=== PATIENT | female | born 1975 | race Caucasian/White ===

== ENCOUNTER → 2016-11-29 | Outpatient (CLI) | payer BC ==
[~2016-11-29] MED LIST: *ANUSOI RE; ACET500C OR; COLA100C2 OR; IBUP600T OR; MOM PO; PRENTAB8 PO; PRIL40CA OR
[2016-11-29 10:14] LABS: ALBUMIN/GLOBULIN RATIO 1.29 (1.00-1.93); ALKALINE PHOSPHATASE 53 U/L (45-117); ALT/SGPT 16 U/L (12-78); ANION GAP 9 MEQ/L (8-16); AST/SGOT 13 U/L (15-37); BILIRUBIN,TOTAL 0.7 MG/DL (0.2-1.0); BLOOD UREA NITROGEN 12 MG/DL (7-18); CARBON DIOXIDE LEVEL 25 MEQ/L (21-32); CHLORIDE LEVEL 105 MEQ/L (98-107); CHOLESTEROL LEVEL 240 MG/DL (<200); CREATININE FOR GFR 0.73 MG/DL (0.55-1.02); GLOMERULAR FILTRATION RATE > 60.0 (>58); GLUCOSE, FASTING 87 MG/DL (70-105); POTASSIUM SERUM 4.6 MEQ/L (3.5-5.1); SODIUM LEVEL 139 MEQ/L (136-145); TOTAL PROTEIN 7.1 GM/DL (6.4-8.2); TRIGLYCERIDES LEVEL 74 MG/DL (<150)
== END ==
LOC: M WUC 08:16
PROVIDERS: ATTEND Physician Assistant Medical
DX: E78.5 Hyperlipidemia, unspecified (principal)

== ENCOUNTER → 2016-12-28 | Outpatient (REF) | payer BC | LOC: M LAB REF 13:50 | PROVIDERS: ATTEND Nurse Practitioner Family | DX: R07.9 Chest pain, unspecified (principal) ==

== ENCOUNTER 2017-07-19 09:32 | Day surgery (SDC) | payer BC ==
[~2017-07-19 09:32] MED LIST changes: -*ANUSOI RE; -ACET500C OR; -COLA100C2 OR; -IBUP600T OR; +LIDOCAINE 2% INJ 100 MG/5 ML SDV (FOR ANES.) As Ordered; -MOM PO; -PRENTAB8 PO; -PRIL40CA OR; +PROPOFOL 200 MG/20 ML VIAL As Ordered
== END 2017-07-19 12:11 | disposition home or self-care (01) ==
LOC: M OPP 09:32
DX: R13.10 Dysphagia, unspecified (principal); K22.8 Other specified diseases of esophagus; K29.70 Gastritis, unspecified, without bleeding; K21.9 Gastro-esophageal reflux disease without esophagitis; R12 Heartburn; Z79.899 Other long term (current) drug therapy
CPT/HCPCS: 43239

== ENCOUNTER → 2018-02-17 | Outpatient (CLI) | payer BC ==
[2018-02-17 19:50] LABS: HEMATOCRIT 38.6 % (36.0-47.0); HEMOGLOBIN 12.6 g/dl (12.0-15.5); MEAN CORPUSCULAR HEMOGLOBIN 28.1 pg (27.0-33.0); MEAN CORPUSCULAR HGB CONC 32.6 g/dl (32.0-36.5); PLATELET COUNT, AUTOMATED 211 10^3/uL (150-450); RED BLOOD COUNT 4.49 10^6/uL (4.00-5.40); RED CELL DISTRIBUTION WIDTH 12.7 % (11.5-14.5); WHITE BLOOD COUNT 5.1 10^3/uL (4.0-10.0)
[2018-02-17 20:02] LABS: ANION GAP 6 MEQ/L (8-16); BLOOD UREA NITROGEN 11 MG/DL (7-18); CALCIUM LEVEL 9.1 MG/DL (8.5-10.1); CARBON DIOXIDE LEVEL 27 MEQ/L (21-32); CHLORIDE LEVEL 106 MEQ/L (98-107); CREATININE FOR GFR 0.74 MG/DL (0.55-1.30); GLOMERULAR FILTRATION RATE > 60.0 (>58); GLUCOSE, FASTING 86 MG/DL (70-100); POTASSIUM SERUM 4.1 MEQ/L (3.5-5.1); SODIUM LEVEL 139 MEQ/L (136-145)
== END ==
LOC: M WUC 17:38
DX: R25.3 Fasciculation (principal)
CPT/HCPCS: 84443

== ENCOUNTER 2018-10-03 12:31 | Day surgery (SDC) | payer BC ==
[~2018-10-03] VITALS: Ht 165.1 cm; Wt 84.4 kg
[~2018-10-03 12:31] MED LIST changes: +*ANUSOI RE; +ACET500C OR; +COLA100C2 OR; +IBUP600T OR; -LIDOCAINE 2% INJ 100 MG/5 ML SDV (FOR ANES.) As Ordered; +MOM PO; +OMEP-221 PO; +PANT40TA3 PO; +PRENTAB8 PO; +PRIL40CA OR; -PROPOFOL 200 MG/20 ML VIAL As Ordered
[2018-10-03] MEDS ORDERED: NS 1,000 ML IV ONE (13:00)
[2018-10-03] MEDS ORDERED: PROPOFOL 200 MG/20 ML VIAL As Ordered ONE ×2 (13:12→13:45)
[2018-10-03] MEDS ORDERED: LIDOCAINE 2% INJ 100 MG/5 ML SDV (FOR ANES.) As Ordered ONE (13:12)
[2018-10-03] MEDS ORDERED: fentaNYL 100 MCG/2 ML INJECTION (J3010) As Ordered ONE (13:13)
--- NOTE | 2018-10-03 14:15 | ROOR ---
Patient Name: Elizabeth Lay Procedure Date: 10/03/2018 1:26 PM Date of : 1975 Age: 42 Room: [facility] Gender: Female Note Status: Finalized Procedure: Upper GI endoscopy Indications: Dysphagia, Heartburn Providers: Cb Arthur MD Referring MD: ANTHONY GRANGER JR, MD Requesting Provider: Medicines: Monitored Anesthesia Care Complications: No immediate complications. Procedure: Pre-Anesthesia Assessment: - Prior to the procedure, a History and Physical was performed, and patient medications and allergies were reviewed. The patient is competent. The risks and benefits of the procedure and the sedation options and risks were discussed with the patient. All questions were answered and informed consent was obtained. Patient identification and proposed procedure were verified by the physician, the nurse and the anesthesiologist in the procedure room. Mental Status Examination: alert and oriented. Airway Examination: normal oropharyngeal airway and neck mobility. Respiratory Examination: clear to auscultation. CV Examination: normal. Prophylactic Antibiotics: The patient does not require prophylactic antibiotics. Prior Anticoagulants: The patient has taken no previous anticoagulant or antiplatelet agents. ASA Grade Assessment: II - A patient with mild systemic disease. After reviewing the risks and benefits, the patient was deemed in satisfactory condition to undergo the procedure. The anesthesia plan was to use monitored anesthesia care (MAC). Immediately prior to administration of medications, the patient was re-assessed for adequacy to receive sedatives. The heart rate, respiratory rate, oxygen saturations, blood pressure, adequacy of pulmonary ventilation, and response to care were monitored throughout the procedure. The physical status of the patient was re-assessed after the procedure. The Endoscope was introduced through the mouth, and advanced to the second part of duodenum. The upper GI endoscopy was accomplished without difficulty. The patient tolerated the procedure well. Findings: The Z-line was irregular and was found 36 cm from the incisors. Mucosal changes including longitudinal furrows, white plaques and circumferential folds were found in the middle third of the esophagus and in the lower third of the esophagus. Biopsies were obtained from the proximal and distal esophagus with cold forceps for histology of suspected eosinophilic esophagitis. Verification of patient identification for the specimen was done by the physician and nurse using the patient's name, date and medical record number. Estimated blood loss was minimal. Scattered mild inflammation characterized by erythema and granularity was found in the gastric antrum. Biopsies were taken with a cold forceps for Helicobacter pylori testing. The duodenal bulb and second portion of the duodenum were normal. Impression: - Z-line irregular, 36 cm from the incisors. - Esophageal mucosal changes suspicious for eosinophilic esophagitis. Biopsied. - Gastritis. Biopsied. - Normal duodenal bulb and second portion of the duodenum. Recommendation: - Patient has a contact number available for emergencies. The signs and symptoms of potential delayed complications were discussed with the patient. Return to normal activities tomorrow. Written discharge instructions were provided to the patient. - High fiber diet. - Follow an antireflux regimen. - Continue present medications. - Await pathology results. - Telephone GI clinic for pathology results in 2 weeks. - Return to primary care physician. Cb Arthur MD Cb Arthur MD 10/03/2018 2:15:01 PM Electronically signed by Cb Arthur MD Number of Addenda: 0 Note Initiated On: 10/03/2018 1:26 PM Estimated Blood Loss: Estimated blood loss was minimal.
--- NOTE | 2018-10-03 14:18 | ROOR ---
Patient Name: Elizabeth Lay Procedure Date: 10/03/2018 1:27 PM Date of : 1975 Age: 42 Room: [facility] Gender: Female Note Status: Finalized Procedure: Colonoscopy Indications: Change in bowel habits, Constipation Providers: Cb Arthur MD Referring MD: ANTHONY GRANGER JR, MD Requesting Provider: Medicines: Monitored Anesthesia Care Complications: No immediate complications. Procedure: Pre-Anesthesia Assessment: - Prior to the procedure, a History and Physical was performed, and patient medications and allergies were reviewed. The patient is competent. The risks and benefits of the procedure and the sedation options and risks were discussed with the patient. All questions were answered and informed consent was obtained. Patient identification and proposed procedure were verified by the physician, the nurse and the anesthesiologist in the procedure room. Mental Status Examination: alert and oriented. Airway Examination: normal oropharyngeal airway and neck mobility. Respiratory Examination: clear to auscultation. CV Examination: normal. Prophylactic Antibiotics: The patient does not require prophylactic antibiotics. Prior Anticoagulants: The patient has taken no previous anticoagulant or antiplatelet agents. ASA Grade Assessment: II - A patient with mild systemic disease. After reviewing the risks and benefits, the patient was deemed in satisfactory condition to undergo the procedure. The anesthesia plan was to use monitored anesthesia care (MAC). Immediately prior to administration of medications, the patient was re-assessed for adequacy to receive sedatives. The heart rate, respiratory rate, oxygen saturations, blood pressure, adequacy of pulmonary ventilation, and response to care were monitored throughout the procedure. The physical status of the patient was re-assessed after the procedure. The Colonoscope was introduced through the anus and advanced to the terminal ileum, with identification of the appendiceal orifice and IC valve. The colonoscopy was performed without difficulty. The patient tolerated the procedure well. The quality of the bowel preparation was good. The terminal ileum, ileocecal valve, appendiceal orifice, and rectum were photographed. Scope insertion time was 2 minutes. Scope withdrawal time was 8 minutes. The total duration of the procedure was 10 minutes. Findings: The perianal and digital rectal examinations were normal. The terminal ileum appeared normal. Normal mucosa was found in the entire colon. Non-bleeding external and internal hemorrhoids were found during retroflexion. The hemorrhoids were small. Impression: - The examined portion of the ileum was normal. - Normal mucosa in the entire examined colon. - Non-bleeding external and internal hemorrhoids. - No specimens collected. Recommendation: - Patient has a contact number available for emergencies. The signs and symptoms of potential delayed complications were discussed with the patient. Return to normal activities tomorrow. Written discharge instructions were provided to the patient. - High fiber diet. - Continue present medications. - Repeat colonoscopy in 10 years for screening purposes. - Return to primary care physician. Cb Arthur MD Cb Arthur MD 10/03/2018 2:18:18 PM Electronically signed by Cb Arthur MD Number of Addenda: 0 Note Initiated On: 10/03/2018 1:27 PM Estimated Blood Loss: Estimated blood loss: none.
[2018-10-03 14:20] VITALS: BP 124/60
== END 2018-10-03 14:46 | disposition home or self-care (01) ==
LOC: M OPP 12:31
PROVIDERS: ATTEND Internal Medicine Gastroenterology
DX: K64.8 Other hemorrhoids (principal); R19.4 Change in bowel habit; K59.00 Constipation, unspecified; R13.10 Dysphagia, unspecified; K22.8 Other specified diseases of esophagus; K29.70 Gastritis, unspecified, without bleeding; R12 Heartburn; K21.9 Gastro-esophageal reflux disease without esophagitis
CPT/HCPCS: 43239; 45378; 88305; J3010

== ENCOUNTER → 2019-02-19 | Outpatient (REF) | payer BC | LOC: M LAB REF 12:11 | PROVIDERS: ATTEND Nurse Practitioner Women's Health | DX: B00.9 Herpesviral infection, unspecified (principal) ==

== ENCOUNTER 2019-05-02 16:56 | Emergency (ER) | payer BC ==
[~2019-05-02] VITALS: Ht 165.1 cm; Wt 86.4 kg
[2019-05-02 18:02] LABS: BASO % 0.4 % (0.0-1.0); EOS # 0.1 10^3/uL (0.0-0.5); HEMATOCRIT 39.9 % (36.0-47.0); HEMOGLOBIN 12.5 g/dl (12.0-15.5); LYMPH # 1.8 10^3/uL (1.5-5.0); LYMPH % 36.3 % (24.0-44.0); MEAN CORPUSCULAR HEMOGLOBIN 26.5 pg (27.0-33.0); MEAN CORPUSCULAR HGB CONC 31.3 g/dl (32.0-36.5); MEAN CORPUSCULAR VOLUME 84.5 fl (80.0-96.0); MONO # 0.4 10^3/uL (0.0-0.8); MONO % 7.5 % (0.0-5.0); NEUTROPHILS # 2.7 10^3/uL (1.5-8.5); NEUTROPHILS % 54.4 % (36.0-66.0); PLATELET COUNT, AUTOMATED 275 10^3/uL (150-450); RED BLOOD COUNT 4.72 10^6/uL (4.00-5.40)
[2019-05-02 18:25] LABS: HCG, SERUM QUALITATIVE NEGATIVE (NEGATIVE)
[2019-05-02 18:34] LABS: BLOOD UREA NITROGEN 9 MG/DL (7-18); CALCIUM LEVEL 8.8 MG/DL (8.5-10.1); CARBON DIOXIDE LEVEL 27 MEQ/L (21-32); CHLORIDE LEVEL 107 MEQ/L (98-107); CK-MB VALUE MASS < 1.0 NG/ML (<3.6); CPK CREATINE PHOSPHOKINASE 102 U/L (26-192); CREATININE FOR GFR 0.73 MG/DL (0.55-1.30); FREE T4 0.97 NG/DL (0.76-1.46); GLOMERULAR FILTRATION RATE > 60.0 (>58); GLUCOSE, FASTING 78 MG/DL (70-100); MAGNESIUM LEVEL 2.1 MG/DL (1.8-2.4); MB/CK RELATIVE INDEX 0.98 (< OR =4); SODIUM LEVEL 140 MEQ/L (136-145); TROPONIN I < 0.02 NG/ML (< 0.10)
[2019-05-02] MEDS ORDERED: Holter Monitor (18:54)
--- NOTE | 2019-05-02 19:12 | REP ---
Chest x-ray: Two views. History: Chest pain. No comparison study. Findings: Monitoring electrodes overlie the chest. Lungs are symmetrically aerated and free of infiltrate. Pleural angles are sharp. Heart size is normal. No significant bony abnormality. Impression: Negative chest x-ray. Electronically Signed by Palmer Ochoa MD 05/02/2019 07:03 P
[2019-05-02 19:37] VITALS: BP 139/83
--- NOTE | 2019-05-03 05:55 | ECGEPIP ---
[facility] - ED Test Date: 2019-05-02 Pat Name: ELLI ORTIZ Department: Room: - Gender: Female Chemistry Specialist: suzie : 1975 Requested By: MELODY Nash Order Number: [id number] Reading MD: Wilfrido Garcia Measurements Intervals [place] Rate: 94 P: 41 LA: 159 QRS: -10 QRSD: 89 T: 43 QT: 338 QTc: 424 Interpretive Statements SINUS RHYTHM POOR R WAVE PROGRESSION NO PRIORS FOR COMPARISON Electronically Signed on 05-03-2019 5:55:17 EST by Wilfrido Garcia
== END 2019-05-02 19:39 | disposition home or self-care (01) ==
LOC: M ED 16:56
DX: R00.2 Palpitations (principal); K21.9 Gastro-esophageal reflux disease without esophagitis; Z79.899 Other long term (current) drug therapy

== ENCOUNTER → 2019-05-05 | Outpatient (CLI) | payer BC ==
[~2019-05-05] MED LIST changes: +Holter Monitor
--- NOTE | 2019-05-08 17:52 | HOLTMON ---
[facility] Test Date: 2019-05-05 Pat Name: ELLI ORTIZ Department: Room: - Gender: Female [employer] Laborer: Gaye Crain/NOLBERTO CHAU : 1975 Requested By: MELODY Nash Order Number: [id number] Reading MD: Kristian Zambrano Interpretive Statements underlying sinus rhythm with rate that varied between 50 to at 4:11 AM and 260 bpm at 12:32 PM, averaging 72 bpm. very rare isolated PACs and atrial couplets but no PSVT Very rare isolated PVCs. patient made 4 diary entries noting "felt palpitations" but rhythms at these times were absolutely regular and normal. Study findings well within normal limits Electronically Signed on 05-08-2019 17:51:51 EST by Kristian Zambrano
== END ==
LOC: M EKG 08:53
PROVIDERS: ATTEND Internal Medicine
DX: R00.2 Palpitations (principal)

== ENCOUNTER → 2019-06-22 | Outpatient (CLI) | payer BC ==
[~2019-06-22] MED LIST changes: +E-Z-GAS II EFFERVESCENT PACKET (SODIUM BICARB./CITRIC ACID/SIMETHICONE) As Ordered ONE; +E-Z-HD 98% w/w 340GM SUSP BTL As Ordered ONE; +E-Z-PAQUE 96% w/w SUSP 176GM BTL As Ordered ONE
--- NOTE | 2019-06-22 16:41 | REP ---
Examination Requested: Upper G.I. Series With KUB Reason For Exam: Gastroesophageal reflux disease with esophagitis, chest pain Upper GI Air Contrast The procedure was performed by HERBERT Jon, under the direct supervision of Dr. Ochoa. The images were reviewed with Dr. Ochoa. 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 The intestinal gas pattern appears normal. Liquid barium and gas producing crystals were given in the erect position as well as liquid barium in the prone oblique position in order to perform a double contrast upper GI examination. The oral and pharyngeal stages of deglutition were unremarkable. Esophageal transport is efficient and there is no esophagitis, stricture, or mucosal ring noted. There is no hiatal hernia. Gastroesophageal reflux was visualized to the thoracic inlet. The stomach gaitan are normally outlined. The rugal folds are smooth and regular. There is no gastritis, neoplasm, ulcer disease noted. The duodenal gaitan are normally outlined. The mucosal folds are smooth and regular. There is no duodenitis, peptic ulcer disease, or neoplasm noted. The visualized portion of the proximal small bowel appears normal in course and caliber. Impression: 1. Gastroesophageal reflux to the level of the thoracic inlet. 0.6 minutes of fluoroscopy time was utilized for this procedure. Some fluoroscopic images are performed with last image hold technology. These images require no additional radiation. Reviewed by HERBERT Dorman 06/22/2019 03:54 P Electronically Signed by Palmer Ochoa MD 06/22/2019 04:31 P
== END ==
LOC: M RAD 08:40
PROVIDERS: ATTEND Physician Assistant Medical
DX: K21.0 Gastro-esophageal reflux disease with esophagitis (principal); R07.9 Chest pain, unspecified

== ENCOUNTER → 2020-06-19 | Outpatient (CLI) | payer BC ==
[~2020-06-19] MED LIST changes: -E-Z-GAS II EFFERVESCENT PACKET (SODIUM BICARB./CITRIC ACID/SIMETHICONE) As Ordered ONE; -E-Z-HD 98% w/w 340GM SUSP BTL As Ordered ONE; -E-Z-PAQUE 96% w/w SUSP 176GM BTL As Ordered ONE; +PANT40TA29 PO; -PANT40TA3 PO
[2020-06-19 11:45] LABS: BASO % 0.3 % (0.0-1.0); EOS # 0.1 10^3/uL (0.0-0.5); EOS % 1.1 % (0.0-3.0); HEMATOCRIT 38.5 % (36.0-47.0); HEMOGLOBIN 11.8 g/dl (12.0-15.5); LYMPH # 2.1 10^3/uL (1.5-5.0); LYMPH % 30.8 % (24.0-44.0); MEAN CORPUSCULAR HEMOGLOBIN 25.1 pg (27.0-33.0); MEAN CORPUSCULAR HGB CONC 30.6 g/dl (32.0-36.5); MEAN CORPUSCULAR VOLUME 81.7 fl (80.0-96.0); MONO # 0.5 10^3/uL (0.0-0.8); NEUTROPHILS % 59.6 % (36.0-66.0); PLATELET COUNT, AUTOMATED 244 10^3/uL (150-450); RED BLOOD COUNT 4.71 10^6/uL (4.00-5.40); WHITE BLOOD COUNT 6.7 10^3/uL (4.0-10.0)
[2020-06-19 12:16] LABS: BLOOD UREA NITROGEN 6 MG/DL (7-18); CREATININE FOR GFR 0.72 MG/DL (0.55-1.30); GLUCOSE, FASTING 89 MG/DL (70-100)
[2020-06-19 12:17] LABS: ALBUMIN 3.7 GM/DL (3.2-5.2); ALT/SGPT 22 U/L (12-78); BILIRUBIN,TOTAL 0.5 MG/DL (0.2-1.0); CALCIUM LEVEL 8.6 MG/DL (8.5-10.1); CARBON DIOXIDE LEVEL 26 MEQ/L (21-32); CHLORIDE LEVEL 106 MEQ/L (98-107); GLOMERULAR FILTRATION RATE > 60.0 (>58); POTASSIUM SERUM 3.4 MEQ/L (3.5-5.1); SODIUM LEVEL 138 MEQ/L (136-145); TOTAL PROTEIN 7.3 GM/DL (6.4-8.2)
== END ==
LOC: M LAB 10:43
PROVIDERS: ATTEND Physician Assistant
DX: R19.7 Diarrhea, unspecified (principal)

== ENCOUNTER → 2020-08-08 | Outpatient (CLI) | payer SELFPAY | LOC: M LABSMTC 09:41 | PROVIDERS: ATTEND Pediatrics | DX: Z20.822 Contact with and (suspected) exposure to COVID-19 (principal) ==

== ENCOUNTER → 2021-01-19 | Outpatient (REF) | payer BC | LOC: M SFHCWAGY 13:39 | PROVIDERS: ATTEND Nurse Practitioner Women's Health | DX: Z12.4 Encounter for screening for malignant neoplasm of cervix (principal) | CPT/HCPCS: 87624; G0123 ==

== ENCOUNTER → 2021-09-04 | Outpatient (CLI) | payer BC ==
[~2021-09-04] MED LIST changes: -OMEP-221 PO; +OMEP40CA5 PO
== END ==
LOC: M WUC 15:14
PROVIDERS: ATTEND Registered Nurse
DX: R06.02 Shortness of breath (principal); Z86.16 Personal history of COVID-19

== ENCOUNTER → 2022-09-20 | Outpatient (REF) | payer BC | LOC: M PLALAB 09:11 | PROVIDERS: ATTEND Advanced Practice Midwife | DX: Z12.4 Encounter for screening for malignant neoplasm of cervix (principal) | CPT/HCPCS: 87624; G0123 ==

== ENCOUNTER → 2022-10-17 | Outpatient (CLI) | payer BC | LOC: M WHC 06:51 | PROVIDERS: ATTEND Advanced Practice Midwife | DX: R10.2 Pelvic and perineal pain (principal); N83.8 Other noninflammatory disorders of ovary, fallopian tube and broad ligament ==

== ENCOUNTER → 2023-01-04 | Outpatient (CLI) | payer BC, OTHER, SELFPAY | LOC: M WHC 06:54 | PROVIDERS: ATTEND Advanced Practice Midwife | DX: R10.2 Pelvic and perineal pain (principal); R19.04 Left lower quadrant abdominal swelling, mass and lump ==

== ENCOUNTER → 2023-02-21 | Outpatient (REF) | payer OTHER, BC | LOC: M LABDRAWP 15:35 | PROVIDERS: ATTEND Obstetrics & Gynecology | DX: N83.202 Unspecified ovarian cyst, left side (principal) ==

== ENCOUNTER → 2023-12-27 | Outpatient (CLI) | payer OTHER ==
[2023-12-27 12:57] LABS: HEMOGLOBIN 13.9 g/dl (12.0-15.5); MEAN CORPUSCULAR HEMOGLOBIN 29.8 pg (27.0-33.0); MEAN CORPUSCULAR HGB CONC 33.9 g/dl (32.0-36.5); PLATELET COUNT, AUTOMATED 227 10^3/uL (150-450); RED BLOOD COUNT 4.66 10^6/uL (4.00-5.40); WHITE BLOOD COUNT 5.1 10^3/uL (4.0-10.0)
== END ==
LOC: M PLALAB 11:13
PROVIDERS: ATTEND Obstetrics & Gynecology
DX: N93.9 Abnormal uterine and vaginal bleeding, unspecified (principal)

== ENCOUNTER → 2024-01-23 | Outpatient (REF) | payer OTHER | LOC: M SFHCWAGY 13:15 | PROVIDERS: ATTEND Obstetrics & Gynecology | DX: N93.9 Abnormal uterine and vaginal bleeding, unspecified (principal) ==

== ENCOUNTER → 2024-01-27 | Outpatient (CLI) | payer BC, OTHER | LOC: M WHC 14:25 | PROVIDERS: ATTEND Obstetrics & Gynecology | DX: N93.9 Abnormal uterine and vaginal bleeding, unspecified (principal); R93.89 Abnormal findings on diagnostic imaging of other specified body structures ==

== ENCOUNTER 2024-05-06 11:29 | Observation (INO) | payer OTHER ==
[2024-05-06] VITALS (7 sets, daily range): BP systolic 126–135; BP diastolic 71–80; TEMP 97.5–98.1; O2SAT 95–98
[~2024-05-06] VITALS: Ht 165.1 cm; Wt 84.2 kg
[~2024-05-06 11:29] MED LIST changes: +OMEP-173 PO
[2024-05-06] MEDS ORDERED: fentaNYL 100 MCG/2 ML INJECTION As Ordered ONE (12:06)
[2024-05-06] MEDS ORDERED: MIDAZOLAM INJ 2MG/2ML VIAL As Ordered ONE (12:06)
[2024-05-06] MEDS ORDERED: HYDROmorphone HCL 2MG/ML 1ML VIAL As Ordered ONE (12:06)
[2024-05-06] MEDS ORDERED: propofoL 200 MG/20 ML VIAL As Ordered ONE (12:09)
[2024-05-06] MEDS ORDERED: ACETAMINOPHEN 1000MG/100ML IV BAG As Ordered ONE (12:09)
[2024-05-06] MEDS ORDERED: ONDANSETRON 4MG 2ML VIAL As Ordered ONE (12:10)
[2024-05-06] MEDS ORDERED: ROCURONIUM BROMIDE 50MG/5ML VIAL As Ordered ONE (12:10)
[2024-05-06] MEDS ORDERED: SUGAMMADEX SODIUM 500 MG/5 ML VIAL (BRIDION) As Ordered ONE (12:10)
[2024-05-06] MEDS ORDERED: KETOROLAC 60MG 2ML VIAL As Ordered ONE (12:10)
[2024-05-06] MEDS ORDERED: NS (Normal Saline) 0.9% 1,000 ML IV SCH (12:10)
[2024-05-06] MEDS ORDERED: LIDOCAINE 2% 100MG/5ML SDV (FOR ANES.) As Ordered ONE (12:10)
[2024-05-06 12:12] LABS: HEMATOCRIT 42.6 % (36.0-47.0); HEMOGLOBIN 14.4 g/dl (12.0-15.5); MEAN CORPUSCULAR HEMOGLOBIN 28.9 pg (27.0-33.0); MEAN CORPUSCULAR HGB CONC 33.8 g/dl (32.0-36.5); MEAN CORPUSCULAR VOLUME 85.5 fl (80.0-96.0); PLATELET COUNT, AUTOMATED 244 10^3/uL (150-450); RED BLOOD COUNT 4.98 10^6/uL (4.00-5.40); WHITE BLOOD COUNT 4.2 10^3/uL (4.0-10.0)
[2024-05-06] MEDS: ceFAZolin SOD 2 GM in IV 1 EA IV ONE (14:00)
[2024-05-06] MEDS ORDERED: ePHEDrine SULFATE 25 MG/5 ML(5MG/ML) SYRINGE As Ordered ONE (14:13)
[2024-05-06] MEDS ORDERED: PHENYLephrine 500MCG 5ML (100MCG/ML) SYRINGE As Ordered ONE (14:13)
[2024-05-06] MEDS: METHYLENE BLUE 0.5% (5MG/ML) 10 ML AMP (PROVAYBLUE) As Ordered ONE (14:55)
[2024-05-06] MEDS: SILVER NITRATE APPLICATOR (1 = QTY 10) As Ordered ONE (15:19)
[2024-05-06] MEDS ORDERED: MEPERIDINE 25 MG/ML 1ML VIAL IV PRN (15:20)
[2024-05-06] MEDS ORDERED: fentaNYL 100 MCG/2 ML INJECTION IV PRN (15:20)
[2024-05-06] MEDS ORDERED: MORPHINE 4 MG/ML 1ML VIAL IV PRN (15:30)
[2024-05-06] MEDS ORDERED: ONDANSETRON 4MG 2ML VIAL IV PRN (15:30)
[2024-05-06] MEDS ORDERED: PERCOCET 5MG/325MG TAB PO PRN ×2 (15:30)
[2024-05-06] MEDS: oxyCODONE 5MG TAB PO PRN (15:54)
[2024-05-06] MEDS: ONDANSETRON 4MG 2ML VIAL IV PRN (15:55)
[2024-05-06] MEDS: LR 1,000 ML IV SCH (17:14)
[2024-05-06] MEDS: KETOROLAC 30 MG/ML 1ML VIAL IV SCH (20:09)
[2024-05-06] MEDS: DOCUSATE SODIUM 100MG CAPSULE PO SCH (20:09)
[2024-05-07 01:17] VITALS: BP 120/71; TEMP 97.9; O2SAT 98
[2024-05-07 04:00] VITALS: BP 129/79; TEMP 98.1; O2SAT 96
[2024-05-07 08:45] VITALS: BP 125/65; TEMP 97.9; O2SAT 97
[2024-05-07] MEDS ORDERED: PERCOCET PO (11:35)
[2024-05-07] MEDS ORDERED: IBUP80TA PO (11:35)
[2024-05-07] MEDS ORDERED: COLA100C5 PO (11:35)
[2024-05-07 12:43] VITALS: BP 133/80; TEMP 97.9; O2SAT 98
[2024-05-07] MEDS ORDERED: OXYC1TAB23 PO (16:26)
[2024-05-07] MEDS ORDERED: IBUPROFEN 800 MG TAB PO SCH (17:00)
== END 2024-05-07 13:10 | disposition home or self-care (01) ==
LOC: M SDC 11:29 → M RR INP 15:29 → M MS5PR 16:30
PROVIDERS: ADMIT Obstetrics & Gynecology; ATTEND Obstetrics & Gynecology
DX: N93.9 Abnormal uterine and vaginal bleeding, unspecified (principal); N83.202 Unspecified ovarian cyst, left side; E78.5 Hyperlipidemia, unspecified; K21.9 Gastro-esophageal reflux disease without esophagitis; Z83.3 Family history of diabetes mellitus; Z79.899 Other long term (current) drug therapy
CPT/HCPCS: 36415; 58571; 81025; 85027; 86850; 86900; 86901; 88307; 96374; 96376; J0131; J0665; J0690; J1100; J1171; J1885; J2250; J2371; J2405; J3010; Q9968; S2900

== ENCOUNTER → 2025-04-26 | Outpatient (CLI) | payer OTHER ==
[~2025-04-26] MED LIST changes: +COLA100C5 PO; +IBUP80TA PO; +OXYC1TAB23 PO; +PERCOCET PO
== END ==
LOC: M WHC 10:18
PROVIDERS: ATTEND Obstetrics & Gynecology
DX: N63.23 Unspecified lump in the left breast, lower outer quadrant (principal); Z53.9 Procedure and treatment not carried out, unspecified reason